=== PATIENT | female | born 1950 | race Caucasian/White ===

== ENCOUNTER 2017-11-22 13:54 | Inpatient (IN) | payer OTHER ==
[~2017-11-22] VITALS: Ht 170.2 cm; Wt 77.1 kg
[~2017-11-22 13:54] MED LIST: ATIVAN2 M1; FOLIC ACID1 MG; HYDROCHLOROTHIA25 MG; LEVSINEX0.375 M1 PO; METHOTREXATE2.5 MG; NEURONTIN300 MG; NORVASC5 MG; PROTONIX40 MG PO; RESTORIL30 M1; SYNTHROID88 MCG; WELLBUTRIN SR150 MG; ZOFRAN4 MG PO; ZOLOFT100 MG
[2017-12-08] MEDS ORDERED: AMLODIPINE BESYL5 MG PO (11:28)
[2017-12-08] MEDS ORDERED: LOSARTAN POTASS50 MG PO (11:28)
[2017-12-08] MEDS ORDERED: LEVOTHYROXINE88 MCG PO (11:29)
[2017-12-08] MEDS ORDERED: SUCRALFATE1 GM/10 ML PO (11:29)
[2017-12-08] MEDS ORDERED: HYDROCHLOROTHIA25 MG PO (11:29)
[2017-12-08] MEDS ORDERED: PANTOPRAZOLE SO40 MG PO (11:29)
[2017-12-08] MEDS ORDERED: ZANTAC150 MG PO (11:30)
[2017-12-08] MEDS ORDERED: ALPRAZOLAM0.5 MG PO (11:30)
== END 2017-12-08 14:05 | disposition home or self-care (01) | DRG 190 ==
LOC: ER 13:54 → MEDJ 11-23 12:06 → SEC-K 11-23 12:06 → MEDJ 11-23 16:35
PROC: 4A033R1 Measurement of Arterial Saturation, Peripheral, Percutaneous Approach (ICD-10-PCS; principal; 2017-11-23)
PROC: 3E0F7GC Introduction of Other Therapeutic Substance into Respiratory Tract, Via Natural or Artificial Opening (ICD-10-PCS; 2017-11-23)
PROC: BB24ZZZ Computerized Tomography (CT Scan) of Bilateral Lungs (ICD-10-PCS; 2017-11-23)
PROC: B246ZZZ Ultrasonography of Right and Left Heart (ICD-10-PCS; 2017-11-25)
PROC: B54DZZZ Ultrasonography of Bilateral Lower Extremity Veins (ICD-10-PCS; 2017-11-30)
DX: J44.1 Chronic obstructive pulmonary disease with (acute) exacerbation (principal); J14 Pneumonia due to Hemophilus influenzae; N39.0 Urinary tract infection, site not specified; R09.02 Hypoxemia; I10 Essential (primary) hypertension; M06.89 Other specified rheumatoid arthritis, multiple sites; D71 Functional disorders of polymorphonuclear neutrophils; B95.7 Other staphylococcus as the cause of diseases classified elsewhere; I87.2 Venous insufficiency (chronic) (peripheral)

== ENCOUNTER → 2017-12-26 | Emergency (ER) | payer OTHER ==
[~2017-12-26] VITALS: Ht 170.2 cm; Wt 72.6 kg
[~2017-12-26] MED LIST changes: +ALPRAZOLAM0.5 MG PO; +AMLODIPINE BESYL5 MG PO; +HYDROCHLOROTHIA25 MG PO; +LEVOTHYROXINE88 MCG PO; +LOSARTAN POTASS50 MG PO; +NORVASC5 MG PO; +PANTOPRAZOLE SO40 MG PO; +SINGULAIR10 MG PO; +SUCRALFATE1 GM/10 ML PO; +ZANTAC150 MG PO; +ZOLOFT100 MG PO
== END | disposition home or self-care (01) ==
LOC: ER 16:57
DX: K52.89 Other specified noninfective gastroenteritis and colitis (principal); E87.6 Hypokalemia

== ENCOUNTER 2017-12-30 09:13 | Outpatient (CLI) | payer OTHER | END 2017-12-30 09:15 | disposition home or self-care (01) | LOC: RAD 09:13 | DX: J44.1 Chronic obstructive pulmonary disease with (acute) exacerbation (principal) ==

== ENCOUNTER 2018-06-04 13:37 | Outpatient (CLI) | payer OTHER | END 2018-06-04 13:59 | disposition home or self-care (01) | LOC: TOM 13:37 | DX: J84.112 Idiopathic pulmonary fibrosis (principal); M06.09 Rheumatoid arthritis without rheumatoid factor, multiple sites ==

== ENCOUNTER 2018-06-07 19:00 | Emergency (ER) | payer OTHER ==
[~2018-06-07] VITALS: Ht 167.6 cm; Wt 78.5 kg
[2018-06-07] MEDS ORDERED: LASIX20 MG (19:18)
[2018-06-07] MEDS ORDERED: NAPR500T14 (19:19)
[2018-06-08] MEDS ORDERED: LEVSIN/SL0.125 MG SL (02:22)
[2018-06-08] MEDS ORDERED: PEPCID40 MG PO (02:22)
[2018-06-08] MEDS ORDERED: CIPRO500 MG PO (02:22)
== END 2018-06-08 02:31 | disposition home or self-care (01) ==
LOC: ER 19:00
DX: K52.89 Other specified noninfective gastroenteritis and colitis (principal); K62.5 Hemorrhage of anus and rectum; R10.32 Left lower quadrant pain

== ENCOUNTER → 2018-11-05 | Outpatient (CLI) | payer OTHER ==
[~2018-11-05] MED LIST changes: +CIPRO500 MG PO; +LASIX20 MG; +LEVSIN/SL0.125 MG SL; +NAPR500T14; +PEPCID40 MG PO
== END | disposition home or self-care (01) ==
LOC: NUCLEAR 15:13
DX: R60.0 Localized edema (principal)

== ENCOUNTER → 2018-11-22 | Outpatient (CLI) | payer OTHER | END | disposition home or self-care (01) | LOC: NUCLEAR 13:06 | DX: I73.9 Peripheral vascular disease, unspecified (principal) ==

== ENCOUNTER 2019-03-08 10:20 | Outpatient (CLI) | payer OTHER | END 2019-03-08 15:00 | disposition home or self-care (01) | LOC: LAB 10:20 | DX: J11.1 Influenza due to unidentified influenza virus with other respiratory manifestations (principal) ==

== ENCOUNTER → 2019-03-19 | Outpatient (CLI) | payer OTHER | END | disposition home or self-care (01) | LOC: RAD 14:39 | DX: M17.0 Bilateral primary osteoarthritis of knee (principal); Z96.652 Presence of left artificial knee joint; I11.9 Hypertensive heart disease without heart failure ==

== ENCOUNTER 2020-02-14 23:06 | Emergency (ER) | payer OTHER ==
[~2020-02-14] VITALS: Ht 170.2 cm; Wt 72.6 kg
[2020-02-14] MEDS ORDERED: SOLUMEDROL (23:33)
[2020-02-15] MEDS ORDERED: CELEBREX100 MG PO (04:19)
[2020-02-15] MEDS ORDERED: ORPHENADRINE C100 MG PO (04:19)
== END 2020-02-15 04:46 | disposition home or self-care (01) ==
LOC: ER 23:06
DX: S81.022A Laceration with foreign body, left knee, initial encounter (principal); W45.8XXA Other foreign body or object entering through skin, initial encounter; Y93.89 Activity, other specified; Y92.89 Other specified places as the place of occurrence of the external cause; Y99.8 Other external cause status

== ENCOUNTER 2020-03-16 15:14 | Emergency (ER) | payer OTHER ==
[~2020-03-16] VITALS: Ht 170.2 cm; Wt 79.4 kg
[~2020-03-16 15:14] MED LIST changes: +CELEBREX100 MG PO; +ORPHENADRINE C100 MG PO; +SOLUMEDROL
[2020-03-16] MEDS ORDERED: SOLU MEDRO (15:58)
== END 2020-03-16 16:46 | disposition home or self-care (01) ==
LOC: ER 15:14
DX: Z48.02 Encounter for removal of sutures (principal)

== ENCOUNTER 2020-03-26 11:58 | Outpatient (CLI) | payer OTHER ==
[~2020-03-26 11:58] MED LIST changes: +SOLU MEDRO
== END 2020-03-26 12:10 | disposition home or self-care (01) ==
LOC: NUCLEAR 11:58
PROVIDERS: ATTEND Internal Medicine
DX: J44.9 Chronic obstructive pulmonary disease, unspecified (principal); R94.31 Abnormal electrocardiogram [ECG] [EKG]

== ENCOUNTER 2020-03-26 13:09 | Outpatient (CLI) | payer OTHER | END 2020-03-26 14:10 | disposition home or self-care (01) | LOC: RAD 13:09 | PROVIDERS: ATTEND Internal Medicine | DX: J40 Bronchitis, not specified as acute or chronic (principal); I50.22 Chronic systolic (congestive) heart failure ==

== ENCOUNTER 2020-09-24 14:10 | Outpatient (CLI) | payer OTHER | END 2020-09-24 14:17 | disposition home or self-care (01) | LOC: TOM 14:10 | PROVIDERS: ATTEND Internal Medicine | DX: J44.9 Chronic obstructive pulmonary disease, unspecified (principal); J45.998 Other asthma; R00.2 Palpitations ==

== ENCOUNTER 2021-04-15 13:44 | Outpatient (CLI) | payer OTHER | END 2021-04-15 14:00 | disposition home or self-care (01) | LOC: RAD 13:44 | PROVIDERS: ATTEND Orthopaedic Surgery Adult Reconstructive Orthopaedic Surgery | DX: M25.562 Pain in left knee (principal); M25.561 Pain in right knee; Z96.651 Presence of right artificial knee joint; Z96.652 Presence of left artificial knee joint; M17.0 Bilateral primary osteoarthritis of knee; S80.01XA Contusion of right knee, initial encounter ==

== ENCOUNTER 2024-03-07 11:25 | Inpatient (IN) | payer OTHER ==
[~2024-03-07] VITALS: Ht 152.4 cm; Wt 67.6 kg
[2024-03-07] MEDS ORDERED: LEXAPRO5 MG PO (11:40)
[2024-03-07] MEDS ORDERED: ONDANSETRON HCL 2 MG/ML VIAL IV STA (12:18)
[2024-03-07] MEDS ORDERED: 0.9 % SODIUM CHLORIDE 1,000 ML IV SCH (12:30)
[2024-03-07] MEDS ORDERED: ONDANSETRON HCL 2 MG/ML VIAL ONE (13:00)
[2024-03-07 13:05] LABS: HEMATOCRIT 40.7 % (36.0-45.00); HEMOGLOBIN 14.5 g/dL (12.0-15.00); MEAN CELL VOLUME 86.3 fL (80.00-100.00); MEAN CORPUSCULAR HEMOGLOBIN 30.7 pg (27.00-32.0); MEAN CORPUSCULAR HGB CONC 35.5 g/dl (32.0-36.0); PLATELET COUNT 248 K/uL (150-450); RED BLOOD COUNT 4.72 M/uL (4.00-6.00)
[2024-03-07 13:30] LABS: CALCIUM 9.1 mg/dL (8.5-10.1); CREATININE SERUM 0.88 mg/dL (0.55-1.02); GFR 62.99
[2024-03-07 13:51] LABS: POTASSIUM 2.83 mEq/L (3.5-5.1)
[2024-03-07] MEDS ORDERED: POTASSIUM CHLORIDE/D5-0.9%NACL 1,000 ML IV ONE (14:30)
[2024-03-07 15:20] LABS: URINE APPEARANCE Clear; URINE BILIRRUBIN Negative (NEGATIVE); URINE BLOOD Negative; URINE COLOR Yellow; URINE GLUCOSE Negative (NEGATIVE); URINE LEUKOCYTE Trace; URINE NITRATE Negative; URINE PROTEIN Negative (NEGATIVE); URINE UROBILINOGEN 0.2 E.U./dl
[2024-03-07 15:21] LABS: URINE BACTERIA 11.3 uL (0.0-1933); URINE WBC 11.2 uL (0.0-23.2)
[2024-03-07 15:22] LABS: URINE RBC 1.6 uL (0.0-20.8)
[2024-03-07] MEDS ORDERED: ACETAMINOPHEN 500 MG GEL..CAP PO PRN (19:15)
[2024-03-07] MEDS ORDERED: RINGERS SOLUTION,LACTATED 1,000 ML IV SCH (19:15)
[2024-03-07] MEDS ORDERED: POTASSIUM BICARBONATE/CIT AC 25 MEQ TABLET.EFF PO ONE (19:15)
[2024-03-07] MEDS ORDERED: ONDANSETRON HCL 4 MG in 0.9 % SODIUM CHLORIDE 50 ML IV PRN (19:15)
[2024-03-07 20:31] LABS: INR 0.97; PROTHROMBIN TIME 10.2 SECONDS (9.0-11.5)
[2024-03-07 20:32] LABS: MAGNESIUM 2.5 mg/dL (1.8-2.4); PHOSPHOROUS 2.6 mg/dL (2.5-4.9)
[2024-03-08] MEDS ORDERED: POTASSIUM CHLORIDE IN 0.9%NACL 1,000 ML IV ONE (06:00)
[2024-03-08] MEDS ORDERED: FAMOTIDINE/PF 20 MG in 0.9 % SODIUM CHLORIDE 8 ML IV PUSH SCH (09:00)
[2024-03-08] MEDS ORDERED: POTASSIUM CHLORIDE IN WATER 100 ML IV NR (10:15)
[2024-03-08] MEDS ORDERED: POTASSIUM CHLORIDE 10 MEQ CAPSULE PO NR (10:15)
[2024-03-08] MEDS ORDERED: LACTOBACILLUS ACIDOPHILUS 1 CAP CAP PO SCH (13:00)
[2024-03-08] MEDS ORDERED: CHOLESTYRAMINE/ASPARTAME LIGHT 4 G/PKT PACKET PO SCH (13:00)
[2024-03-08 16:34] LABS: ALBUMIN 3.5 gm/dL (3.4-5.0); BILIRUBIN TOTAL 0.31 mg/dL (0.3-1.2); CALCIUM 8.8 mg/dL (8.5-10.1); CKMB 1.3 NG/ML (0.5-3.6); CREATININE SERUM 0.68 mg/dL (0.55-1.02); GFR 84.81; GLOBULINA 2.3 G/DL (2.4-3.5); POTASSIUM 5.01 mEq/L (3.5-5.1); TOTAL PROTEIN 5.8 gm/dL (6.4-8.2)
[2024-03-08] MEDS ORDERED: ALPRAzolam 0.5 MG TABLET PO SCH (21:00)
[2024-03-09 07:43] LABS: CALCIUM 8.9 mg/dL (8.5-10.1); CREATININE SERUM 0.7 mg/dL (0.55-1.02); GFR 82.02; POTASSIUM 4.69 mEq/L (3.5-5.1)
== END 2024-03-09 21:53 | disposition home or self-care (01) | DRG 641 ==
LOC: ER 11:25 → MEDI 19:34
PROVIDERS: Emergency Medicine; General Practice; Internal Medicine; ADMIT Internal Medicine; ATTEND Internal Medicine
DX: E87.6 Hypokalemia (principal); E86.0 Dehydration; R53.1 Weakness